=== PATIENT | male | born 1975 | race Caucasian/White ===

== ENCOUNTER 2018-07-04 05:59 | Day surgery (SDC) | payer OTHER ==
[2018-07-04] MEDS ORDERED: COLACE100 MG PO (07:27)
[2018-07-04] MEDS ORDERED: PERCOCET 5-3251 EACH PO (07:27)
== END 2018-07-04 13:40 | disposition home or self-care (01) ==
LOC: CIR.AMB 05:59 → ADM 09:15 → CIR.AMB 09:15
DX: K60.3 Anal fistula (principal)